=== PATIENT | female | born 1990 | race Caucasian/White ===

== ENCOUNTER 2023-02-15 05:31 | Inpatient (IN) ==
[2023-02-15] MEDS ORDERED: Buffered Lidocaine 1% SYRIN 1 ml INTRADERM ONE ×2 (05:50→06:00)
[2023-02-15] MEDS ORDERED: Sodium Citrate/Citric Acid LIQ 15 ML UDC PO ONE ×2 (05:50→06:00)
[2023-02-15] MEDS ORDERED: Lactated Ringers 1000 ml BAG 1,000 ML IV ONE (05:50)
[2023-02-15] MEDS ORDERED: ceFOXitin 2 GM IVPREMIX 2 GM/50 ML BAG IVPB ONE (05:50)
[2023-02-15] MEDS ORDERED: Lactated Ringers 1000 ml BAG 1,000 ML IV SCH ×3 (06:00→11:00)
[2023-02-15 06:34] LABS: ABS Eosinophils 0.1 10^3/uL (0.0-0.5); ABS Lymphocytes 1.6 10^3/uL (1.0-4.8); ABS Monocytes 0.4 10^3/uL (0.0-0.9); ABS Neutrophils 3.6 10^3/uL (1.5-7.6); Hematocrit 27.4 % (35-45); Hemoglobin 9.2 g/dL (11.5-14.3); Lymphocyte % 28.2 %; Mean Corpuscular Hemoglobin 25.7 pg (27-33); Mean Corpuscular Hgb Conc 33.6 g/dL (31-36); Mean Corpuscular Volume 76.4 fL (80-97); Platelet Count 161 10^3/uL (150-450); Red Blood Count 3.58 10^6/uL (3.63-4.92); Red Cell Distribution Width 16.1 % (12-17); White Blood Count 5.7 10^3/uL (3.8-11.8)
[2023-02-15] MEDS ORDERED: Naloxone 0.4 mg VIAL 0.4 mg/ml 1 ml VIAL IV PRN (07:28)
[2023-02-15] MEDS ORDERED: fentaNYL 100 mcg/2 ml 50 MCG/ML VIAL IV PRN (07:28)
[2023-02-15] MEDS ORDERED: Naloxone 0.4 mg VIAL 0.4 mg/ml 1 ml VIAL IV PUSH PRN (07:29)
[2023-02-15] MEDS ORDERED: Acetaminophen IV 1 GM/100ML 1,000 MG/100 ML BAG IV PRN (07:29)
[2023-02-15] MEDS ORDERED: Metoclopramide 5 MG/ML VIAL (10 mg) IV PRN (07:29)
[2023-02-15] MEDS ORDERED: Ondansetron 4 mg VIAL 2 MG/ML 2 ml VIAL IV PRN (07:29)
[2023-02-15] MEDS ORDERED: Morphine PF AMP (0.5MG/ML) 5 MG/10 ML AMP ONE (07:53)
[2023-02-15] MEDS ORDERED: Dexamethasone IV 4 MG/ML VIAL 1 ml VIAL ONE (07:54)
[2023-02-15] MEDS ORDERED: Oxytocin 10 UNITS/ML 1 ML VIAL ONE (07:54)
[2023-02-15] MEDS ORDERED: Ondansetron 4 mg VIAL 2 MG/ML 2 ml VIAL ONE (07:54)
[2023-02-15] MEDS ORDERED: Phenylephrine 40 mcg/mL 10mL (400mcg) SYRINGE ONE (08:50)
[2023-02-15] MEDS ORDERED: fentaNYL 100 mcg/2 ml 50 MCG/ML VIAL ONE (09:14)
[2023-02-15] MEDS: Oxytocin in LR 20,000 MILLI.UNIT/1,000 ML BAG IV SCH ×2 (10:00→12:18)
[2023-02-15] MEDS ORDERED: Dibucaine 1% OINT 28.35 GM TUBE PR PRN (10:15)
[2023-02-15] MEDS ORDERED: Witch Hazel PAD JAR TOPICAL PRN (10:15)
[2023-02-15] MEDS ORDERED: Glycerin ADULT 2.4 gm SUPP PR PRN (10:15)
[2023-02-15 11:54] LABS: Urine Appearance Clear; Urine Bilirubin Negative (Negative); Urine Blood Negative (Negative); Urine Color Straw; Urine Glucose Negative (Negative); Urine Ketones Trace (Negative); Urine Nitrite Negative (Negative); Urine Protein Negative (Negative); Urine Specific Gravity 1.005 (1.002-1.030); Urine Urobilinogen Negative (Negative)
[2023-02-16] MEDS ORDERED: Oxytocin in LR 20,000 MILLI.UNIT/1,000 ML BAG IV ONE (00:35)
[2023-02-16] MEDS: fentaNYL 100 mcg/2 ml 50 MCG/ML VIAL ONE ×2 (00:45→01:10)
[2023-02-16 01:35] LABS: ABS Lymphocytes 1.5 10^3/uL (1.0-4.8); ABS Monocytes 0.8 10^3/uL (0.0-0.9); ABS Neutrophils 8.8 10^3/uL (1.5-7.6); Eosinophil % 0.1 %; Hematocrit 23.1 % (35-45); Hemoglobin 7.5 g/dL (11.5-14.3); Lymphocyte % 13.8 %; Mean Corpuscular Hemoglobin 25.1 pg (27-33); Mean Corpuscular Hgb Conc 32.6 g/dL (31-36); Mean Corpuscular Volume 76.9 fL (80-97); Mean Platelet Volume 9.5 fL (7.5-11.2); Platelet Count 199 10^3/uL (150-450); Red Cell Distribution Width 16.2 % (12-17); White Blood Count 11.1 10^3/uL (3.8-11.8)
[2023-02-16 01:41] LABS: Platelet Count 207 10^3/ul (150-450)
[2023-02-16 01:44] LABS: Activated Partial Thrombo Time 22.2 seconds (26.0-38.0); INR 0.95 (0.83-1.13)
[2023-02-16 01:53] LABS: Calcium 8.2 mg/dL (8.6-10.3); Creatinine, Serum 0.53 mg/dL (0.51-0.95); Potassium 3.7 mmol/L (3.5-5.0); eGFR CKD-EPI 125.9 (>60)
[2023-02-16] MEDS ORDERED: Midazolam 2 mg/2 ml VIAL 1 mg/ml 2 ml VIAL (2 mg) ONE (02:10)
[2023-02-16] MEDS ORDERED: KETAMINE HCL 10 MG/ML 20 ml VIAL (200 MG) ONE (02:10)
[2023-02-16] MEDS ORDERED: ceFOXitin 2 GM IVPREMIX 2 GM/50 ML BAG ONE (02:37)
[2023-02-16 02:49] LABS: Schistocytes ABSENT
[2023-02-16] MEDS ORDERED: Oxytocin 10 UNITS/ML 1 ML VIAL ONE (02:49)
[2023-02-16 09:52] LABS: ABS Monocytes 0.7 10^3/uL (0.0-0.9); ABS Neutrophils 7.4 10^3/uL (1.5-7.6); ABS Nucleated RBC 0.01 10^3/ul; Eosinophil % 0.3 %; Hematocrit 25.5 % (35-45); Hemoglobin 8.5 g/dL (11.5-14.3); Lymphocyte % 20.1 %; Mean Corpuscular Hemoglobin 24.8 pg (27-33); Mean Corpuscular Hgb Conc 33.2 g/dL (31-36); Mean Corpuscular Volume 74.9 fL (80-97); Mean Platelet Volume 8.9 fL (7.5-11.2); Platelet Count 151 10^3/uL (150-450); Red Cell Distribution Width 19.4 % (12-17); White Blood Count 10.2 10^3/uL (3.8-11.8)
[2023-02-17 08:56] VITALS: BP 134/74
== END 2023-02-17 15:45 | disposition home or self-care (01) | DRG 540 ==
LOC: MCHOB 05:31
PROVIDERS: ADMIT Obstetrics & Gynecology; ATTEND Obstetrics & Gynecology